=== PATIENT | female | born 1980 | race Caucasian/White ===

== ENCOUNTER 2021-01-07 13:02 | Emergency (ER) | payer MEDICAID ==
[~2021-01-07] VITALS: Ht 165.1 cm; Wt 74.0 kg
[~2021-01-07 13:02] MED LIST: FERR-252 PO; PREN-385 PO
[2021-01-07 13:16] VITALS: BP 111/71
--- NOTE | 2021-01-07 14:17 | NUR ---
Patient ambulated to bed 9. RN evaluating the patient at bedside.
--- NOTE | 2021-01-07 14:21 | NUR ---
Dr. Meléndez is evaluating the patient at bedside.
[2021-01-07] MEDS ORDERED: ONDANSETRON 4 MG ODT PO ONE (14:35)
[2021-01-07] MEDS ORDERED: KETOROLAC 15 MG/ML VIAL IM ONE (14:35)
[2021-01-07] MEDS ORDERED: HYDROcodone/APAP 5/325 MG 1 TAB TAB PO ONE (14:35)
--- NOTE | 2021-01-07 14:53 | NUR ---
US tech at bedside.
--- NOTE | 2021-01-07 14:59 | NUR ---
US AT BEDSIDE
--- NOTE | 2021-01-07 15:08 | NUR ---
PATIENT PRESENTS TO ED WITH ABD PAIN/N/V/D X2 DAYS .SKIN IS PINK/WARM/DRY; AAOX4 WITH EVEN AND STEADY GAIT; LUNGS CLEAR BL; HR EVEN AND REGULAR; PT DENIES ANY FEVER, CP, SOB, OR COUGH AT THIS TIME; PATIENT STATES PAIN OF 8/10 AT THIS TIME; VSS; PATIENT POSITIONED FOR COMFORT; HOB ELEVATED; BEDRAILS UP X2; BED DOWN. ER MD MADE AWARE OF PT STATUS.
[2021-01-07 15:53] LABS: APPEARANCE,URINE CLEAR (CLEAR); BILIRUBIN,URINE NEGATIVE (NEGATIVE); BLOOD, URINE NEGATIVE (NEGATIVE); COLOR,URINE YELLOW (YELLOW); LEUKOCYTE ESTERASE ,URINE NEGATIVE (NEGATIVE); NITRITE, URINE NEGATIVE (NEGATIVE); UGLUCOSE NEGATIVE (NEGATIVE)
[2021-01-07 15:56] LABS: BASOPHILS % (AUTO) 0.3 % (0.0-2.0); EOSINOPHILS # (AUTO) 0.1 K/uL (0-0.4); EOSINOPHILS % (AUTO) 1.1 % (0.0-4.0); HEMOGLOBIN 14.3 g/dL (12.0-16.0); LYMPHOCYTES # (AUTO) 2.4 K/uL (2.5-16.5); LYMPHOCYTES % (AUTO) 24.5 % (20.5-51.1); MEAN CORPUSCULAR HEMOGLOBIN 31 pg (27-31); MEAN CORPUSCULAR HGB CONC 34 g/dL (33-37); MEAN CORPUSCULAR VOLUME 90.5 fL (80-94); MONOCYTES # (AUTO) 0.9 K/uL (0.8-1.0); NEUTROPHILS # (AUTO) 6.3 K/uL (1.8-7.7); NEUTROPHILS % (AUTO) 65.1 % (42.2-75.2); PLATELET COUNT (AUTO) 218 K/uL (140-450); RED BLOOD CELL COUNT(AUTO) 4.65 MIL/uL (4.20-5.40); WHITE BLOOD COUNT (AUTO) 9.7 K/uL (4.8-10.8)
--- NOTE | 2021-01-07 16:15 | NUR ---
Dr. Meléndez is evaluating the patient at bedside.
[2021-01-07 16:18] LABS: ANION GAP 10.3 (8-16); CARBON DIOXIDE 29.2 mmol/L (21-32); CREATININE 0.9 mg/dL (0.6-1.3); POTASSIUM 3.5 mmol/L (3.5-5.1); TOTAL BILIRUBIN 0.5 mg/dL (0.0-1.0)
[2021-01-07] MEDS ORDERED: ACET-10509 PO (16:32)
[2021-01-07] MEDS ORDERED: ONDA-24 PO (16:32)
[2021-01-07 16:44] VITALS: BP 111/71
--- NOTE | 2021-01-07 16:44 | NUR ---
Patient discharged with v/s stable. Written and verbal after care instructions given and explained. Patient alert, oriented and verbalized understanding of instructions. Ambulatory with steady gait. All questions addressed prior to discharge. ID band removed. Patient advised to follow up with PMD. Rx of TYLENOL, ZOFRAN given. Patient educated on indication of medication including possible reaction and side effects. Opportunity to ask questions provided and answered.
== END 2021-01-07 16:44 | disposition home or self-care (01) ==
LOC: MED 13:02
DX: R10.9 Unspecified abdominal pain (principal); R11.2 Nausea with vomiting, unspecified; R19.7 Diarrhea, unspecified; Z98.890 Other specified postprocedural states
CPT/HCPCS: 36415; 76705; 80053; 81003; 81025; 83690; 84703; 85025; 96372; 99284; J1885; Q0162

== ENCOUNTER 2022-04-25 11:12 | Emergency (ER) | payer MEDICAID ==
[~2022-04-25] VITALS: Ht 158.5 cm; Wt 74.5 kg
[~2022-04-25 11:12] MED LIST changes: +ACET-10509 PO; +ONDA-188 PO
[2022-04-25 11:29] VITALS: BP 102/60
--- NOTE | 2022-04-25 11:37 | NUR ---
DENNISE. HANDED ON URINE CUP.
--- NOTE | 2022-04-25 12:15 | NUR ---
amb to bed
--- NOTE | 2022-04-25 12:30 | NUR ---
42Y/O FEMALE PT PRESENTS TO ED WITH C/O N/V, LOWER BACK PAIN RADIATING TO ABDOMEN X3 DAYS. PT REPORTS 10/10 INTERMITTENT PAIN, CHILLS, FEVERS. PT TOOK TYLENOL WITH MILD RELIEF, DENIES DIARRHEA, AND UTI SYMPTOMS.
--- NOTE | 2022-04-25 13:04 | NUR ---
LUIS AND FLU SWABS COLLECTED AND HANDED TO SURGICAL FIRST ASSISTANT.
[2022-04-25 14:22] LABS: BASOPHILS % (AUTO) 0.3 % (0.0-2.0); EOSINOPHILS % (AUTO) 0.4 % (0.0-4.0); HEMATOCRIT 41.3 % (36-48); HEMOGLOBIN 14.4 g/dL (12.0-16.0); LYMPHOCYTES # (AUTO) 0.5 K/uL (2.5-16.5); LYMPHOCYTES % (AUTO) 8.8 % (20.5-51.1); MEAN CORPUSCULAR HEMOGLOBIN 31 pg (27-31); MEAN CORPUSCULAR HGB CONC 35 g/dL (33-37); MEAN CORPUSCULAR VOLUME 89.4 fL (80-94); MONOCYTES # (AUTO) 0.7 K/uL (0.8-1.0); NEUTROPHILS # (AUTO) 4.8 K/uL (1.8-7.7); NEUTROPHILS % (AUTO) 79.5 % (42.2-75.2); PLATELET COUNT (AUTO) 209 K/uL (140-450); RED BLOOD CELL COUNT(AUTO) 4.61 MIL/uL (4.20-5.40); RED CELL DISTRIBUTION WIDTH 12.7 % (11.6-13.7)
[2022-04-25] MEDS ORDERED: KETOROLAC 30 MG/ML VIAL IM ONE (14:25)
[2022-04-25 14:39] LABS: ALBUMIN 3.7 g/dL (3.4-5.0); ANION GAP 13.5 (8-16); CREATININE 0.9 mg/dL (0.6-1.3); POTASSIUM 3.5 mmol/L (3.5-5.1); TOTAL BILIRUBIN 0.2 mg/dL (0.0-1.0)
[2022-04-25] MEDS ORDERED: ONDA-188 SL (14:52)
--- NOTE | 2022-04-25 15:31 | NUR ---
Patient discharged with v/s stable. Written and verbal after care instructions ABOUT GENERAL HEADACHE, ABD PAIN, VIRAL ILLNESS, WEAKNESS given and explained. Patient alert, oriented and verbalized understanding of instructions. Ambulatory with steady gait. All questions addressed prior to discharge. ID band removed. Patient advised to follow up with PMD. Rx of ZOFRAN given. Patient educated on indication of medication including possible reaction and side effects. Opportunity to ask questions provided and answered.
[2022-04-25 15:32] VITALS: BP 120/61
== END 2022-04-25 15:32 | disposition home or self-care (01) ==
LOC: MED 11:12
DX: B34.9 Viral infection, unspecified (principal); Z20.822 Contact with and (suspected) exposure to COVID-19; R10.11 Right upper quadrant pain; R50.9 Fever, unspecified; R51.9 Headache, unspecified
CPT/HCPCS: 36415; 76705; 80053; 81002; 81025; 83690; 85025; 87426; 87804; 96372; 99284; J1885; Q0092